=== PATIENT | male | born 1970 | race American Indian/Alaskan Native ===

== ENCOUNTER 2017-04-16 01:44 | Emergency (ER) | payer OTHER ==
--- NOTE | 2017-04-16 04:02 | Emergency Department Report ---
HPI - General Chief Complaint: Allergic Reaction Time Seen by Provider: 04/16/17 03:55 ED Past Medical Hx - Past Medical History Previous Medical History?: Yes Hx Asthma: Yes Additional medical history: A fib - Surgical History Past Surgical History?: Yes Additional Surgical History: CIRCUMCISION - Social History Smoking Status: Never Smoker Substance Use Type: None ED Review of Systems ROS: Stated complaint: ALLERGIC REACTION Other details as noted in HPI Physical Exam - Physical Exam Vital Signs: Vital Signs 04/16/17 02:55 Temperature 97.4 F L Pulse Rate 82 Respiratory 20 Rate Blood Pressure 146/79 O2 Sat by Pulse 96 Oximetry ED Course Vital Signs 04/16/17 02:55 Temperature 97.4 F L Pulse Rate 82 Respiratory 20 Rate Blood Pressure 146/79 O2 Sat by Pulse 96 Oximetry Critical care attestation.: If time is entered above; I have spent that time in minutes in the direct care of this critically ill patient, excluding procedure time. ED Disposition Condition: Stable Referrals: PRIMARY CARE [Referring] - 3-5 Days
--- NOTE | 2017-04-16 04:18 | Emergency Department Report ---
ED Allergic Reaction HPI - General Chief complaint: Allergic Reaction Stated complaint: ALLERGIC REACTION Time Seen by Provider: 04/16/17 03:55 Source: patient Mode of arrival: Ambulatory Limitations: No Limitations - History of Present Illness Initial Comments: 46 YO MALE H/O SHELL FISH ALLERGY WHO C/O ALLERGIC REACTION TODAY. PT DEVELOPED HIVES ALL OVER HIS BODY AND FELT THROAT TIGHTNESS. HER USED HIS NIECE EPI PEN AND CAME TO THE HOSPITAL. PT SAYS HE ATE REGULAR FISH TODAY BUT HIS FEELS THAT THIS IS UNRELATED BECAUSE FOR 3 WEEKS HE HAS BEEN HAVING EXTREME ITCHING BODYWIDE BUT NEVER WITH URTICARIA OR THROAT DISCOMFORT. MD Complaint: allergic reaction, hives, facial swelling -: Sudden Exposure: unknown Symptoms: rash, itching, facial swelling Treatment Prior to Arrival: epinephrine (.3 MG IM ) - Related Data Previous Rx's Medication Instructions Recorded Last Taken Type Dexamethasone [Decadron] 20 mg PO ONCE #1 tablet 04/16/17 Unknown Rx EPINEPHrine [Epipen] 0.3 mg IJ ONCE #4 auto.injct 04/16/17 Unknown Rx Ranitidine HCl [Zantac 300 MG TAB] 300 mg PO ONCE #1 tablet 04/16/17 Unknown Rx Allergies Allergy/AdvReac Type Severity Reaction Status Date / Time iodine Allergy Anaphylaxis Verified 04/16/17 02:54 shellfish derived Allergy Anaphylaxis Verified 04/16/17 02:54 ED Review of Systems ROS: Stated complaint: ALLERGIC REACTION Other details as noted in HPI Constitutional: denies: chills, fever Eyes: denies: eye pain, eye discharge, vision change ENT: other (THROAT TIGHTNESS). denies: ear pain, throat pain Respiratory: denies: cough, shortness of breath, wheezing Cardiovascular: denies: chest pain, palpitations Endocrine: no symptoms reported Gastrointestinal: denies: abdominal pain, nausea, diarrhea Genitourinary: denies: urgency, dysuria Musculoskeletal: other (LEG SWELLING). denies: back pain, joint swelling, arthralgia Skin: pruritus. denies: rash, lesions Neurological: denies: headache, weakness, paresthesias Psychiatric: denies: anxiety, depression Hematological/Lymphatic: denies: easy bleeding, easy bruising ED Past Medical Hx - Past Medical History Previous Medical History?: Yes Hx Asthma: Yes Additional medical history: A fib, - Surgical History Past Surgical History?: Yes Additional Surgical History: CIRCUMCISION - Social History Smoking Status: Never Smoker Substance Use Type: None - Medications Home Medications: Home Medications Medication Instructions Recorded Confirmed Last Taken Type Dexamethasone [Decadron] 20 mg PO ONCE #1 tablet 04/16/17 Unknown Rx EPINEPHrine [Epipen] 0.3 mg IJ ONCE #4 auto.injct 04/16/17 Unknown Rx Ranitidine HCl [Zantac 300 MG TAB] 300 mg PO ONCE #1 tablet 04/16/17 Unknown Rx ED Physical Exam - General Limitations: No Limitations General appearance: alert, in no apparent distress - Head Head exam: Present: atraumatic, normocephalic - Eye Eye exam: Present: normal appearance, EOMI - ENT ENT exam: Present: normal exam, normal orophraynx (NO SWELLING, NO EDEMA), mucous membranes moist - Neck Neck exam: Present: normal inspection, full ROM - Respiratory Respiratory exam: Present: normal lung sounds bilaterally. Absent: respiratory distress, wheezes, rales, rhonchi - Cardiovascular Cardiovascular Exam: Present: regular rate, normal rhythm, normal heart sounds. Absent: bradycardia, tachycardia, irregular rhythm, systolic murmur, diastolic murmur, rubs, gallop - GI/Abdominal GI/Abdominal exam: Present: soft, normal bowel sounds. Absent: distended, tenderness, guarding, rebound - Rectal Rectal exam: Present: deferred - Extremities Exam Extremities exam: Present: normal inspection, full ROM - Back Exam Back exam: Present: normal inspection, full ROM - Neurological Exam Neurological exam: Present: alert, oriented X3, CN II-XII intact - Psychiatric Psychiatric exam: Present: normal affect, normal mood - Skin Skin exam: Present: warm, dry, intact, normal color, other (NO RASH,URTICARIA RESOLVED AFTER EPI SHOT). Absent: rash ED Course Vital Signs 04/16/17 04/16/17 02:55 04:00 Temperature 97.4 F L Pulse Rate 82 64 Respiratory 20 17 Rate Blood Pressure 146/79 147/93 O2 Sat by Pulse 96 99 Oximetry ED Medical Decision Making - Lab Data Result diagrams: 04/16/17 04:40 04/16/17 04:40 Critical care attestation.: If time is entered above; I have spent that time in minutes in the direct care of this critically ill patient, excluding procedure time. ED Disposition Clinical Impression: Edema of both legs, Dehydration, Abdominal pain Allergic reaction Qualifiers: Encounter type: initial encounter Qualified Code(s): T78.40XA - Allergy, unspecified, initial encounter Disposition: -01 TO HOME OR SELFCARE Is pt being admited?: No Does the pt Need Aspirin: No Condition: Stable Instructions: Urticaria (ED), Allergies (ED), Leg Edema (ED), Abdominal Pain ( ED) Additional Instructions: PLEASE DOCUMENT TYPE OF FOOD INTAKE AND WHEN ITCHING AND RASH APPEAR TO TRY TO DETERMINE THE CAUSE OF YOUR ALLERGIC REACTION. ALSO CHECK MEDICATION THAT YOU ARE ON. Prescriptions: Dexamethasone [Decadron] 20 mg PO ONCE #1 tablet EPINEPHrine [Epipen] 0.3 mg IJ ONCE #4 auto.injct Ranitidine HCl [Zantac 300 MG TAB] 300 mg PO ONCE #1 tablet Referrals: PRIMARY CARE, [Referring] - 3-5 Days Time of Disposition: 06:16
[2017-04-16 04:50] VITALS: BP 147/93
[2017-04-16] MEDS ORDERED: ZOFRAN IV ONE (04:55)
[2017-04-16 04:56] LABS: Basophils % (Auto) 0.3 % (0.0-1.8); Hematocrit 42.6 % (35.5-45.6); Hemoglobin 14.3 gm/dl (11.8-15.2); Mean Corpuscular HGB Conc 34 % (32-34); Mean Corpuscular Hemoglobin 30 pg (28-32); Mean Corpuscular Volume 90 fl (84-94); Platelet Count 220 K/mm3 (140-440); Red Blood Count 4.74 M/mm3 (3.65-5.03); Red Cell Distribution Width 13.3 % (13.2-15.2); White Blood Count 5.7 K/mm3 (4.5-11.0)
[2017-04-16 05:17] LABS: Alanine Aminotransferase 37 units/L (7-56); Albumin 3.8 g/dL (3.9-5); Albumin/Globulin Ratio 1.5 %; Alkaline Phosphatase 62 units/L (35-129); Anion Gap 17 mmol/L; BUN/Creatinine Ratio 19; Blood Urea Nitrogen 26 mg/dL (9-20); Calcium 9.1 mg/dL (8.4-10.2); Carbon Dioxide 25 mmol/L (22-30); Chloride 102.8 mmol/L (98-107); Glucose 99 mg/dL (75-100); Potassium 4.4 mmol/L (3.6-5.0); Sodium 140 mmol/L (137-145); Total Protein 6.4 g/dL (6.3-8.2)
[2017-04-16] MEDS ORDERED: NACL 0.9% 1000 ML 1,000 ML IV ONE (06:12)
== END 2017-04-16 07:16 | disposition home or self-care (01) ==
LOC: ED 01:44
DX: T78.40XA Allergy, unspecified, initial encounter (principal); E86.0 Dehydration; R60.9 Edema, unspecified; R10.9 Unspecified abdominal pain; J45.909 Unspecified asthma, uncomplicated; Z91.013 Allergy to seafood
CPT/HCPCS: 36415; 80053; 83880; 85025; 96361; 96374; 96375; 99283; J2405; J2930; J7030